=== PATIENT | male | born 1970 | race Caucasian/White ===

== ENCOUNTER → 2017-04-21 | Day surgery (SDC) | payer OTHER ==
[~2017-04-21] MED LIST: BENADRYL25 M1 PO; FIBERCON625 MG PO; NASAL SPRAY; TAGAMET PO
--- NOTE | ~2017-04-21 | OR ---
Unit #: [id number] #: [id number] Patient: CARMEN WEINSTEIN [id number] [place], [place] [address] [id number] MR#: [id number] NAME: CARMEN WEINSTEIN ROOM: Date of Procedure: 04/21/2017 Admission Date: 04/21/2017 Surgeon: Justin Sotelo M.D. : 1970 Attending Physician: Justin Sotelo M.D. OPERATIVE REPORT PRIMARY CARE PHYSICIAN Tarsha Delgado M.D. PREOPERATIVE DIAGNOSES 1. Hematochezia. 2. Altered bowel habits. 3. The patient says he is feeling some "mass" in the perianal area. PROCEDURES PERFORMED Colonoscopy up to cecum and terminal ileum. POSTOPERATIVE DIAGNOSES The patient had perianal skin tags and small papilloma. There being very small external hemorrhoids. Otherwise, examination was normal up to cecum and terminal ileum. The quality of the prep was excellent. RECOMMENDATIONS No treatment is needed. Reassurance is in order. SEDATION USED MAC. DESCRIPTION OF PROCEDURE Following detailed explanation of the potential risks and complications of a colonoscopy, namely perforation, bleeding, and complications related to sedation, the patient was brought to GI lab and laid in the left lateral decubitus position. A digital rectal examination was performed, that showed presence of small perianal skin tags. Lubricated tip of the Olympus video colonoscope was inserted through the anus and advanced under direct vision. As the scope was advanced, the anal canal and perianal area was examined carefully, both in the antegrade examination in the retroflexed position, a small perianal skin tag and a papilloma was seen. The scope was then straightened. The scope was advanced past rectosigmoid into descending colon. No diverticula were noted in this area. The scope tip was then navigated all the way up to cecum with visualization of the ileocecal valve and the appendiceal orifice. Preparation was excellent with good visualization and photodocumentation was obtained. Last several inches of the terminal ileum were also visualized after intubation of the ileocecal valve and appeared normal. Successive segments of the colonic mucosa were examined upon withdrawal and appeared unremarkable. There being no polyps, mass lesions, AVMs, or diverticula. The patient did have very small external hemorrhoids. There being no internal hemorrhoids. In Unit #: [id number] #: [id number] Patient: CARMEN WEINSTEIN addition, the perianal skin tag was again noted. The scope was then withdrawn and the patient returned to the recovery area. He tolerated the procedure without any postprocedure complications. Dictated by... Alonso Saavedra/toby TD: 04/21/2017 17:31 JOB #: [id number] CC: Tarsha Delgado M.D. OPERATIVE REPORT Page 1 of 1 X Justin Sotelo MD X PROCEDURE OPERATIVE NOTE
== END | disposition home or self-care (01) ==
LOC: COPS 06:34
DX: K64.4 Residual hemorrhoidal skin tags (principal); D23.5 Other benign neoplasm of skin of trunk; F17.210 Nicotine dependence, cigarettes, uncomplicated; Z87.19 Personal history of other diseases of the digestive system; Z88.8 Allergy status to other drugs, medicaments and biological substances; Z79.899 Other long term (current) drug therapy; Z98.890 Other specified postprocedural states
CPT/HCPCS: J2250